=== PATIENT | female | born 1970 | race African-American/Black ===

== ENCOUNTER 2019-02-12 06:51 | Emergency (ER) | payer MEDICAID ==
[~2019-02-12] VITALS: Ht 160 cm; Wt 61.2 kg
[2019-02-12 08:11] LABS: Basophils # (auto) 0 uL; Basophils % (auto) 0.6 % (0.0-2.0); Eosinophils # (auto) 0.1 uL; Eosinophils % (auto) 3.1 % (0.0-7.0); Hematocrit 43.3 % (36.0-46.0); Hemoglobin 14.4 g/dL (12.2-16.2); Lymphocytes # (auto) 1.3 uL; Lymphocytes % (auto) 30.9 % (10.0-50.0); Mean Corpuscular Hemoglobin 32.7 pg (28.0-32.0); Mean Corpuscular Hgb Conc. 33.3 g/dL (32.0-36.0); Mean Corpuscular Volume 98.1 fL (80.0-100.0); Monocytes # (auto) 0.3 uL; Monocytes % (auto) 7.5 % (0.0-12.0); Neutrophils # (auto) 2.4 uL; Neutrophils % (auto) 57.9 % (37.0-80.0); Platelet Count (auto) 180 10^3/uL (140-450); Red Blood Cells 4.41 10^6/uL (4.0-5.20); Red Cell Distribution Width 14.5 % (11.8-14.3); White Blood Cell 4.2 10^3/uL (4.4-10.8)
[2019-02-12 08:23] LABS: Albumin 4.8 g/dL (3.4-5.0); Calcium 9.3 mg/dL (8.5-10.1); Potassium 3.2 mmol/L (3.5-5.1)
[2019-02-12 08:28] LABS: BUN/Creatinine Ratio 12.3; Bilirubin, Total 0.9 mg/dL (0.2-1.0); Total Protein 8.4 g/dL (6.4-8.2)
[2019-02-12 09:45] VITALS: BP 145/91
[2019-02-12] MEDS ORDERED: SODIUM CHLORIDE 0.9% 1,000 ML IVB ONE (09:55)
[2019-02-12] MEDS ORDERED: PROMETHAZINE HCL 25 MG/ML 1ML IV PRN (10:00)
[2019-02-12] MEDS ORDERED: KETOROLAC TROMETH 30 MG/ML 1ML VIAL IV ONE ×2 (10:00→12:30)
[2019-02-12 11:50] LABS: Urine Bacteria FEW /hpf (None Seen); Urine Blood Negative /uL (Negative); Urine Mucus FEW (None Seen); Urine Specific Gravity 1.029 (1.001-1.035); Urine WBC 19 /hpf (0 - 5)
[2019-02-12] MEDS ORDERED: PROMETHAZINE HCL 25 MG/ML 1ML IV ONE (12:30)
[2019-02-12] MEDS ORDERED: cefTRIAXone 1GM/50ML D5W 50 ML IV ONE (12:45)
== END 2019-02-12 14:21 | disposition home or self-care (01) ==
LOC: EDBD 06:51 → ER 06:51
DX: N39.0 Urinary tract infection, site not specified (principal); E87.6 Hypokalemia; J45.909 Unspecified asthma, uncomplicated; F12.10 Cannabis abuse, uncomplicated; Z85.3 Personal history of malignant neoplasm of breast
CPT/HCPCS: 36415; 74176; 80053; 81001; 81025; 82150; 83690; 85025; 96361; 96365; 96375; 96376; 99284; J0696; J1885; J2550